=== PATIENT | male | born 1955 | race Caucasian/White ===

== ENCOUNTER 2018-01-15 23:35 | Inpatient (IN) | payer OTHER ==
[2018-01-15] MEDS ORDERED: Ondansetron HCl/PF 4 MG/2 ML Vial ONE (23:59)
[2018-01-15] MEDS ORDERED: Morphine 4 MG/ML VIAL ONE (23:59)
[2018-01-16 00:15] LABS: #Basophils 0.1 thou/uL (0.0-0.2); #Eosinphils 0.1 thou/uL (0.0-0.7); #Lymphocytes 1.5 thou/uL (1.20-3.40); #Monocytes 0.7 thou/uL (0.11-0.59); #Neutrophils 7.4 thou/uL (1.40-6.50); %Basophils 0.6 % (0.0-1.0); %Eosinophils 1.5 % (0.0-10.0); %Lymphocytes 15.4 % (21.0-51.0); %Monocytes 6.7 % (0.0-10.0); %Neutrophils 75.8 % (42.0-75.0); Hemoglobin 15.8 g/dL (14.0-18.0); Mean Corpuscular HGB CONC 34.4 g/dL (32.0-36.0); Mean Corpuscular Hemoglobin 30.7 pg (27.0-31.0); Mean Corpuscular Volume 89.2 fL (78.0-98.0); Mean Platelet Volume 7.2 fL (7.4-10.4); Platelet Count 215 thou/uL (130-400); RBC Distribution Width 11.1 % (11.5-14.5); Red Blood Cell (RBC) Count 5.14 mill/uL (4.70-6.10); White Blood Cell (WBC) Count 9.7 thou/uL (4.8-10.8)
[2018-01-16 00:22] LABS: ALT (SGPT) 33 U/L (8-55); AST (SGOT) 19 U/L (5-34); Albumin 4.3 g/dL (3.5-5.0); Alkaline Phosphatase 71 U/L (40-150); Anion Gap 13 mmol/L (10-20); BUN (Urea Nitrogen) 19 mg/dL (8.4-25.7); Bilirubin, Total 0.7 mg/dL (0.2-1.2); Calc. Creatinine Clearance 0 mL/min (70-130); Calcium 9.7 mg/dL (7.8-10.44); Carbon Dioxide 25 mmol/L (22-29); Chloride 108 mmol/L (98-107); Estimated GFR-MDRD 84; Globulin 2.8 g/dL (2.4-3.5); Glucose 111 mg/dL (70-105); Lipase 33 U/L (8-78); Potassium 3.5 mmol/L (3.5-5.1); Protein, Total 7.1 g/dL (6.0-8.3); Sodium 142 mmol/L (136-145)
[2018-01-16 00:27] LABS: CKMB 1.7 ng/mL (0-6.6); Troponin I Less than 0.010 ng/mL (< 0.028)
[2018-01-16 01:56] LABS: Bilirubin Negative (Negative); Blood, Urine Negative (Negative); Clarity Slightly Cloudy (Clear); Glucose, Urine (Dipstick) Negative (Negative); Leukocyte Negative (Negative); Nitrite Negative (Negative); Protein, Urine (Dipstick) Negative (Neg-Trace); Specific Gravity, Urine 1.015 (1.005-1.030); Urobilinogen 0.2 mg/dL (0.2-1.0); pH, Urine 7.5 (5.0-9.0)
[2018-01-16] MEDS ORDERED: Morphine 4 MG/ML VIAL ONE (02:43)
[2018-01-16] MEDS ORDERED: Ondansetron HCl/PF 4 MG/2 ML Vial ONE (02:43)
[2018-01-16] MEDS ORDERED: Lidocaine 4% Topical Sol 50 ML BOT ONE (03:18)
[2018-01-16] MEDS ORDERED: Benzocaine 20% Spray 60 ML CAN ONE (03:18)
[2018-01-16] MEDS ORDERED: Ondansetron HCl/PF 4 MG/2 ML Vial IVP PRN (05:14)
[2018-01-16 05:44] VITALS: BMI 34.9
[2018-01-16] MEDS: D5 1/2 NS w/20 mEq KCL 1,000 ML IV SCH ×2 (06:24→16:20)
[2018-01-16] MEDS: Acetaminophen 1,000 MG in Premix Bag 1 BAG IVPB PRN ×2 (06:37→16:34)
[2018-01-16] MEDS ORDERED: Clopidogrel Bisulfate 75 MG TAB ONE (07:39)
--- NOTE | 2018-01-16 08:03 | CT ---
PRELIMINARY REPORT/[facility]/EMERGENTY AFTER-HOURS PROCEDURE CT Abdomen and Pelvis With Intravenous Contrast EXAM DATE/TIME: 01/16/2018 1:18 AM CLINICAL HISTORY: Pain; Abdominal pain; Patient HX: M62 presents to ed with C/O sharp epigastric abd pain onset 2 hours ago. Pt reports vomiting one time, denies blood. Pt reports a lot of gas within th e past 1-2 wks. Pt reports chills onset today, and mild SOB due to pain. Pt denies any radiation of pain, diarrhea, constipation, fever, cp, dysuria. TECHNIQUE: Axial computed tomography images of the abdomen and pelvis with intravenous contrast. Kate nal reformatted images were created and reviewed. CONTRAST: 85 mL of [id number] administered intravenously. COMPARISON: No relevant prior studies available. FINDINGS: Lung bases: Bilateral subsegmental atelectasis/pleural parenchymal scar. 4 mm right lower lobe nodule . Mediastinum: Contrast within the distal esophagus suggestive of reflux. ABDOMEN: Liver: Unremarkable. No mass. Gallbladder and bile ducts: There has been a cholecystectomy. No ductal dilation. Pancreas: Unremarkable. No mass. No ductal dilation. Spleen: Unremarkable. No splenomegaly. Adrenals: Unremarkable. No mass. Kidneys and ureters: 4 mm left renal calculus. No hydronephrosis. Stomach and bowel: Duodenal diverticulum. Mildly dilated small bowel loops within the central abdomen with a transition on the right. Minimal adjacent mesenteric edema. Colonic diverticula without adjac ent inflammatory change. PELVIS: Appendix: No findings to suggest acute appendicitis. Bladder: Unremarkable. No mass. Reproductive: Unremarkable as visualized. ABDOMEN and PELVIS: Intraperitoneal space: Trace free fluid within the pelvis. No free air. Bones/joints: Multilevel spondylosis. No acute fracture. No dislocation. Soft tissues: Small to moderate bilateral fat containing inguinal hernias. Vasculature: Unremarkable. No abdominal aortic aneurysm. Lymph nodes: Unremarkable. No enlarged lymph nodes. IMPRESSION: 1. Findings compatible with small bowel obstruction. 2. Other findings as above. ---We are pleased to participate in the care of your patient.--- Thank you for allowing us to participate in the care of your patient. Dictated and Authenticated by: Verónica Lewis MD 01/16/2018 3:01 AM Central Time ([place] & [place]) CT ABDOMEN AND PELVIS WITH ORAL AND IV CONTRAST: FINAL REPORT: I agree with the preliminary report given by Dr. Verónica Lewis of [facility]. POS: ED
[2018-01-16] MEDS: Pantoprazole 40 MG VIAL IVP SCH (08:34)
--- NOTE | 2018-01-16 09:17 | RAD ---
UPRIGHT AND SUPINE VIEWS OF THE ABDOMEN: Date: 01-16-18 History: Small bowel obstruction. Comparison: 12-07-15 FINDINGS: Nasogastric tube is noted in place with tip overlying the expected location of the gastric fundus. Th ere are dilated loops of small bowel predominately within the left abdomen. There is residual contras t seen within the urinary bladder related to recent contrasted exam. Surgical clips again overlie the right upper quadrant. The lung bases are clear. No other interval change when compared to the prior exam. IMPRESSION: 1. Dilated loops of small bowel worrisome for partial small bowel obstruction, and findings were seen on the recent CT scan exam on 01-16-18. 2. Nasogastric tube in place with the tip overlying the gastric fundus. POS: [facility]
[2018-01-16] MEDS: Ketorolac Tromethamine 30 MG/ML VIAL IVP PRN ×2 (11:53→17:53)
--- NOTE | 2018-01-16 16:39 | ULT ---
THYROID ULTRASOUND: 01/16/18 HISTORY: Thyroid nodule. COMPARISON: None. TECHNIQUE: Sagittal and transverse images of the thyroid gland is performed. FINDINGS: The thyroid isthmus measures 0.4 cm. Right thyroid lobe measures 4.4 x 1.7 x 2.3 cm. Left thyroid lob e measures 4.3 x 1.5 x 1.8 cm. In the mid portion left thyroid lobe, there is a solid echotexture nodule with minimal heterogeneity measuring 1.0 x 0.7 x 1.1 cm. There is associated increased vascularity. IMPRESSION: Solid nodule in the left thyroid lobe with a TI-RADS calculator score of TR3. Followup imaging in one year. POS: ED
--- NOTE | 2018-01-16 19:20 | HP ---
DATE OF ADMISSION: 01/16/2018 CHIEF COMPLAINT: Abdominal pain, nausea and vomiting. HISTORY OF PRESENT ILLNESS: The patient is a 62-year-old white male. I saw him when he was admitted to the hospital in 12/2015 for the same presentation. He was felt to have a small-bowel obstruction , which resolved quickly and uneventfully. The etiology of his obstruction was not apparent at that time as he had not had significant prior abdominal surgery. He denies any interval problems in the past 2 years. Last night, he began to feel poorly at about 9: 00 p.m. and vomited about midnight and presented to the hospital shortly thereafter. CT scan reveale d findings consistent with a small-bowel obstruction with a transition zone. A nasogastric tube was placed and he has felt better subsequently. He has not had flatus or bowel movement today. PAST MEDICAL HISTORY: History of cardiac arrhythmia for which he underwent cardiac ablation in 1999. PAST SURGICAL HISTORY: Laparoscopic cholecystectomy about 2009 and bilateral knee arthroscopy. MEDICATIONS: Aspirin. ALLERGIES: No known drug allergies. PERSONAL/SOCIAL HISTORY: He is and his is present at bedside. He has 3 children. He d oes not smoke. He drinks alcohol rarely. 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 REVIEW OF SYSTEMS: Ten system review is otherwise negative. FAMILY HISTORY: Noncontributory. PHYSICAL EXAMINATION: VITAL SIGNS: Temperature is 97.7, pulse 62, blood pressure 164/91. GENERAL: He is a well-developed, well-nourished, pleasant white male, resting in bed, in no acute di stress. Nasogastric tube is in place. He is alert and oriented x3. HEENT: Unremarkable. NECK: Supple without mass or tenderness. LUNGS: Clear to auscultation throughout. CARDIAC: Regular rate and rhythm without murmur. ABDOMEN: Soft and nontender. There is no guarding. Bowel sounds are not present currently. EXTREMITIES: Unremarkable. LABORATORY DATA: Comprehensive metabolic panel obtained at about midnight is essentially normal. CB C was also normal with a hemoglobin of 15 and a white blood cell count 9.7. ASSESSMENT AND PLAN: Patient with small-bowel obstruction of uncertain etiology. It is possible hussein t this is related in some fashion to adhesions associated with his laparoscopic cholecystectomy, but this is felt to be unlikely. Options include conservative management with nasogastric tube decompression for 24 hours followed by Gastrografin small bowel follow through versus operative exploration. I have recommended a conservat bernie approach and he agrees with this. We will plan to obtain a small bowel follow through in the laurent nicholeg and proceed from there depending upon results. He understands that he may require surgery to be tter evaluate this if the small bowel follow through is positive and does in fact show an area of obs truction.
[2018-01-16] MEDS ORDERED: Aspirin/APAP/Caffeine Tab (Excedrin Migraine) PO PRN (20:52)
[2018-01-17] MEDS: Ketorolac Tromethamine 30 MG/ML VIAL IVP PRN ×2 (00:15→08:52)
[2018-01-17] MEDS: D5 1/2 NS w/20 mEq KCL 1,000 ML IV SCH ×2 (00:23→07:45)
[2018-01-17] MEDS ORDERED: Morphine 4 MG/ML VIAL IV SCH (05:30)
[2018-01-17 05:33] LABS: Anion Gap 11 mmol/L (10-20); BUN (Urea Nitrogen) 11 mg/dL (8.4-25.7); Calc. Creatinine Clearance 124 mL/min (70-130); Calcium 8.6 mg/dL (7.8-10.44); Carbon Dioxide 25 mmol/L (22-29); Chloride 106 mmol/L (98-107); Estimated GFR-MDRD 85; Glucose 127 mg/dL (70-105); Potassium 3.8 mmol/L (3.5-5.1); Sodium 138 mmol/L (136-145)
[2018-01-17] MEDS: Pantoprazole 40 MG VIAL IVP SCH (08:56)
[2018-01-17] MEDS ORDERED: Oxymetazoline HCl 0.05% ( 15 ML ) NASAL SCH (09:00)
--- NOTE | 2018-01-17 11:23 | RAD ---
GASTROGRAFIN SMALL BOWEL: HISTORY: Evaluate for small bowel obstruction. COMPARISON: 12/08/2015 FINDINGS: Initial wet sander radiograph demonstrates a nasogastric tube in the gastric cardia. Residual contrast an d fecal material in the right hemicolon. Gastrografin opacifies multiple mildly prominent proximal to mid small bowel loops. The mid to dista l small bowel loops are decompressed. Contrast opacifies the colon at 45 minutes to 1 hour. On the 1 hour image, there is still oral contrast present in the stomach. IMPRESSION: No evidence of high grade small bowel obstruction. POS: [facility]
[2018-01-17 12:32] VITALS: BP 155/92; TEMP 97.6
--- NOTE | 2018-01-18 00:49 | DIS ---
DATE OF ADMISSION: 01/16/2018 DATE OF DISCHARGE: 01/17/2018 ADMISSION DIAGNOSIS: Small-bowel obstruction. DISCHARGE DIAGNOSIS: Small-bowel obstruction, resolved. OPERATION PERFORMED: None. ADMISSION HISTORY: The patient is a 62-year-old male known to myself from prior admission for a smal l-bowel obstruction that resolved spontaneously. He presented late at night on the and was admi tted to the hospital on the after nasogastric tube was placed. This was placed after CT scan re vealed findings consistent with a proximal small bowel obstruction with a transition zone. He had a headache associated with his nasogastric tube, but otherwise has had an unremarkable stay. Today, he had a Gastrografin small bowel follow through with quick passage of contrast through the intestine a nd has had several bowel movements. He denies any abdominal pain or nausea. His nasogastric tube wa s immediately removed, was started on a clear liquid diet which was tolerated nicely. His abdominal exam is benign. In summary, he is stable for discharge with resolution of small-bowel obstruction. The etiology of his bowel obstruction is uncertain as the only prior abdominal surgery, had his lapar oscopic cholecystectomy. At this time; however, he clearly does not have any dangerous or worrisome intra-abdominal findings and further observation regarding this is certainly appropriate. He underst ands another obstruction may occur in the future, although it may never happen again. He also unders tands that this happens again that he can neither treated with conservative measures as we have twice now or consider proceeding with a laparoscopic evaluation. He was discharged home without medicatio n and will follow up with myself as necessary.
== END 2018-01-17 16:02 | disposition home or self-care (01) | DRG 390 ==
LOC: SCSER 23:35 → SURG A 01-16 03:15 → OBSVTOIN 01-16 03:15
PROVIDERS: ADMIT Surgery; ATTEND Surgery
DX: K56.609 Unspecified intestinal obstruction, unspecified as to partial versus complete obstruction (principal)
CPT/HCPCS: 36415; 74019; 74177; 74250; 76536; 80048; 80053; 81003; 82553; 83690; 84484; 85025; 93005; 96374; 96375; 96376; A4216; C9113; J0131; J1885; J2001; J2270; J2405

== ENCOUNTER 2021-11-11 07:09 | Day surgery (SDC) | payer BC ==
[2021-11-10 09:39] VITALS: BMI 34.3
[2021-11-11 08:52] LABS: #Eosinphils 0.1 thou/uL (0.0-0.7); #Lymphocytes 1.7 thou/uL (1.20-3.40); #Monocytes 0.6 thou/uL (0.11-0.59); #Neutrophils 3.2 thou/uL (1.40-6.50); %Basophils 0.3 % (0.0-1.0); %Eosinophils 1.9 % (0.0-10.0); %Lymphocytes 30.3 % (21.0-51.0); %Monocytes 11.2 % (0.0-10.0); %Neutrophils 56.3 % (42.0-75.0); Hemoglobin 14.2 g/dL (14.0-18.0); Mean Corpuscular HGB CONC 33.1 g/dL (32.0-36.0); Mean Corpuscular Hemoglobin 31.9 pg (27.0-31.0); Mean Corpuscular Volume 96.5 fL (78.0-98.0); Mean Platelet Volume 7.4 fL (7.4-10.4); Platelet Count 196 thou/uL (130-400); Red Blood Cell (RBC) Count 4.44 mill/uL (4.70-6.10); White Blood Cell (WBC) Count 5.7 thou/uL (4.8-10.8)
[2021-11-11 08:55] LABS: Hemoglobin A1c 5.1 % (4.0-6.0)
[2021-11-11 08:58] LABS: ALT (SGPT) 33 U/L (8-55); AST (SGOT) 21 U/L (5-34); Albumin 3.8 g/dL (3.4-4.8); Alkaline Phosphatase 91 U/L (40-110); Anion Gap 11 mmol/L (10-20); BUN (Urea Nitrogen) 21 mg/dL (8.4-25.7); Bilirubin, Total 0.4 mg/dL (0.2-1.2); Calc. Creatinine Clearance 108 mL/min (70-130); Calcium 9.1 mg/dL (7.8-10.44); Carbon Dioxide 25 mmol/L (23-31); Chloride 109 mmol/L (98-107); Estimated GFR 81; Globulin 2.4 g/dL (2.4-3.5); Glucose 94 mg/dL (80-115); Potassium 3.9 mmol/L (3.5-5.1); Protein, Total 6.2 g/dL (5.8-8.1); Sodium 141 mmol/L (136-145)
[2021-11-11 09:01] LABS: CSF, Glucose 61 mg/dl (40-70); CSF, Protein 56 mg/dL (15-40)
[2021-11-11 09:14] LABS: CSF Source CSF; Clarity Clear (Clear); Tube # 4
[2021-11-11 09:34] LABS: CSF RBC Count - Manual 18 /cu.mm (None Seen); CSF WBC/NonHematics Count-Man 1 /cu.mm (0-5)
[2021-11-11 09:37] LABS: Color Of CSF Supernatant COLORLESS (Colorless); Tube # 2; Unspun CSF Color COLORLESS (Colorless)
[2021-11-14 16:13] LABS: A/G Ratio 1.3 (0.7-1.7); Albumin 3.4 g/dL (2.9-4.4); Alpha 1 0.2 g/dL (0.0-0.4); Alpha 2 0.6 g/dL (0.4-1.0); Beta 0.9 g/dL (0.7-1.3); Globulin, Total 2.7 g/dL (2.2-3.9); M-Spike Not Observed g/dL (Not Observed)
== END 2021-11-11 09:30 | disposition home or self-care (01) ==
LOC: RAD 07:09
PROVIDERS: ATTEND Psychiatry & Neurology Neurology
PROC: 00JU3ZZ Inspection of Spinal Canal, Percutaneous Approach (ICD-10-PCS; principal; 2021-11-11)
DX: M79.2 Neuralgia and neuritis, unspecified (principal); I10 Essential (primary) hypertension; I48.91 Unspecified atrial fibrillation; Z86.16 Personal history of COVID-19; Z79.82 Long term (current) use of aspirin; Z79.899 Other long term (current) drug therapy
CPT/HCPCS: 62270; 80053; 82525; 82607; 82746; 82945; 82947; 83036; 84155; 84157; 84165; 85025; 87205; 89051